=== PATIENT | female | born 1950 | race Caucasian/White ===

== ENCOUNTER 2018-01-19 11:17 | Emergency (ER) | payer OTHER ==
--- NOTE | 2018-01-19 12:37 | EDPHY ---
H & P Stated Complaint: fell on ice Time Seen by Provider: 01/19/18 11:30 HPI/ROS: CHIEF COMPLAINT: Mechanical fall, right knee pain HISTORY OF PRESENT ILLNESS: The patient presents to the ED after mechanical fall on the ice today. She twisted her right knee and felt a pop. She did strike her head but did not sustain significant loss of consciousness. She has no complaints of headache or neck pain. The patient denies any chest pain, abdominal pain or additional acute complaints. She is having some discomfort with attempted ambulation in her right knee. The patient is not anticoagulated. She does have a prior history of a left knee ACL injury which was treated non operatively. She denies any acute numbness or weakness. She denies any antecedent chest pain, palpitations or shortness of breath. REVIEW OF SYSTEMS: A comprehensive 10 point review of systems is otherwise negative aside from elements mentioned in the history of present illness. Source: Patient Exam Limitations: No limitations - Personal History Current Tetanus/Diphtheria Vaccine: Unsure Current Tetanus Diphtheria and Acellular Pertussis (TDAP): Unsure - Medical/Surgical History Hx Asthma: No Hx Chronic Respiratory Disease: No Hx Diabetes: No Hx Cardiac Disease: No Hx Renal Disease: No Hx Cirrhosis: No Hx Alcoholism: No Hx HIV/AIDS: No Hx Splenectomy or Spleen Trauma: No Other PMH: Left torn ACL, Gastric bypass 15 years ago. essential tremor. - Social History Smoking Status: Former smoker - Physical Exam Exam: General Appearance: Alert, no distress Head: Atraumatic Eyes: Pupils equal, round, reactive ENT, Mouth: No hemotympanum, no oral trauma Neck: Nontender, trachea midline Respiratory: No chest wall tender, subcutaneous air, lungs clear bilaterally Cardiovascular: Regular rate and rhythm Abdomen: Abdomen is soft and nontender, pelvis stable Skin: Superficial abrasion left elbow Back: No midline T/L/S pain Extremities: [Nontender, full range of motion, tenderness to palpation over the right fibular head Neurological: A&Ox3, normal motor function, normal sensory exam Constitutional: Initial Vital Signs Temperature (C) 36.8 C 01/19/18 11:22 Heart Rate 109 H 01/19/18 11:22 Respiratory Rate 20 01/19/18 11:22 Blood Pressure 149/105 H 01/19/18 11:22 O2 Sat (%) 93 01/19/18 11:22 O2 Delivery Mode Room Air Allergies/Adverse Reactions: No Known Allergies Allergy (Unverified 01/19/18 11:29) Home Medications: Medication Instructions Recorded B 01/19/18 Medical Decision Making - Diagnostics Imaging Results: Right knee x-ray: Images reviewed by myself, negative for fracture or dislocation. ED Course/Re-evaluation: ED course: The patient presents the ED for evaluation of right knee pain following a mechanical fall. The patient is noted to have no evidence of an obvious fracture on her exam. She is neurologically intact. Aside from a superficial abrasion no additional injury is noted. The patient has been informed of the possibility of an internal derangement to the left knee. She will follow up with Orthopedics as an outpatient. She will be discharged home with crutches and a knee immobilizer. She will contact [facility] to arrange a follow-up visit. Differential Diagnosis: Differential diagnosis considered includes fracture, sprain, dislocation Departure - Departure Disposition: Home, Routine, Self-Care Clinical Impression: Right knee sprain Condition: Good Instructions: Knee Sprain (ED) Additional Instructions: 1. Please contact your physician at [facility] to schedule a orthopedic referral for any ongoing knee pain, swelling or immobility. 2. Crutches and brace as needed for assistance. 3. Weight bear as tolerated. 4. Take Ibuprofen or Motrin 600 mg by mouth three times a day.
[2018-01-19] MEDS ORDERED: IBUPROFEN 600 MG TAB PO ONE (13:54)
[2018-01-19 14:25] VITALS: BP 156/95
== END 2018-01-19 14:27 | disposition short-term general hospital (02) ==
LOC: EDUNIT#
DX: S83.91XA Sprain of unspecified site of right knee, initial encounter (principal); W00.0XXA Fall on same level due to ice and snow, initial encounter; Y93.9 Activity, unspecified; Y92.9 Unspecified place or not applicable
CPT/HCPCS: 73564; 99285; L1830